=== PATIENT | female | born 1980 | race African-American/Black ===

== ENCOUNTER 2017-11-20 21:09 | Emergency (ER) | payer SELFPAY ==
[~2017-11-20] VITALS: Ht 162.6 cm; Wt 81.6 kg
--- NOTE | 2017-11-20 21:37 | NUR ---
Patient discharged to home in stable conditon. Written and verbal after care instructions given. Patient verbalizes understanding of instructions. Crutches dispensed, crutch gait training complete. MIGUEL bandage applied, CMS WNL. Ambulated from ER with stable gait. Peripheral IV ( placed by EMS DIRECTOR EMBALMER) is removed by HAULPAK DRIVER at time of discharge. All belongings with patient.
[2017-11-20 21:39] VITALS: BP 128/80
== END 2017-11-20 21:39 | disposition home or self-care (01) ==
LOC: ER 21:10
DX: S93.401A Sprain of unspecified ligament of right ankle, initial encounter (principal); X58.XXXA Exposure to other specified factors, initial encounter; Y93.89 Activity, other specified; Y92.89 Other specified places as the place of occurrence of the external cause; Y99.8 Other external cause status
CPT/HCPCS: 73610; A4663